=== PATIENT | female | born 1985 | race Caucasian/White ===

== ENCOUNTER 2016-09-23 20:13 | Inpatient (IN) | payer SELFPAY ==
[2016-09-23] MEDS ORDERED: Piperacillin/Tazobact 3.375 GM in Sodium Chloride 0.9% 100 ML IVPB STA (20:49)
[2016-09-23] MEDS ORDERED: Piperacillin/Tazobact 3.375 gm Inj IVPB ONE (21:05)
--- NOTE | 2016-09-23 21:27 | ED PDOC ---
Lower Extremity Pain/Injury Time Seen by Provider: 09/23/16 20:26 Chief Complaint (Nursing): Lower Extremity Problem/Injury Chief Complaint (Provider): right foot swelling History Per: Patient History/Exam Limitations: no limitations Onset/Duration Of Symptoms: Days (2 weeks), Persistent Current Symptoms Are (Timing): Still Present Severity: Moderate Additional History Per: Patient Additional Complaint(s): The pt is a 31yo female, presents to the ED for evaluation of right foot swelling for the past 2 weeks. pt reports she was seen at an Urgent Care center in [place] and was diagnosed with cellulitis, given 10 day course of levoquin. Pt reports no improvement. States swelling is localized to top of foot associated with erythema and mild pain. Pt states redness slightly improved with use of antibioitcs but no changes in swelling. She went in for reevaluation today and was told to go to a hospital for further evaluation. Pt denies any trauma or open lesions in her foot. Pt reports continued walking with foot brace/boot on. She denies any fever or chills. Pt additionally reports she had outpatient labs demonstrated possible dM. She denies using any alcohol, tobacco or drugs. At present, she offers no additional medical complaints. Past Medical History Reviewed: Historical Data, Nursing Documentation, Vital Signs Vital Signs: Last Vital Signs Temp 97.2 F L 09/23/16 20:22 Pulse 77 09/23/16 20:22 Resp 16 09/23/16 20:22 BP 120/75 09/23/16 20:22 Pulse Ox 99 09/23/16 20:22 - Medical History PMH: No Chronic Diseases - Surgical History Surgical History: No Surg Hx - Family History Family History: States: Diabetes - Home Medications Home Medications: Ambulatory Orders Medication Instructions Recorded No Known Home Med 09/24/16 - Allergies Allergies/Adverse Reactions: Allergies Allergy/AdvReac Type Severity Reaction Status Date / Time No Known Allergies Allergy Verified 09/23/16 20:22 Review of Systems ROS Statement: Except As Marked, All Systems Reviewed And Found Negative Constitutional: Negative for: Fever, Chills Musculoskeletal: Positive for: Foot Pain (right foot swelling) Physical Exam - Reviewed Nursing Documentation Reviewed: Yes Vital Signs Reviewed: Yes - Physical Exam Appears: Positive for: Well, Non-toxic, No Acute Distress Head Exam: Positive for: ATRAUMATIC, NORMAL INSPECTION, NORMOCEPHALIC Skin: Positive for: Normal Color, Warm, DRY Eye Exam: Positive for: EOMI, Normal appearance, PERRL Neck: Positive for: Normal Cardiovascular/Chest: Positive for: Regular Rate, Rhythm Respiratory: Positive for: Normal Breath Sounds. Negative for: Respiratory Distress Pulses-Post. Tibialis (L): 2+ Pulses-Post. Tibialis (R): 2+ Gastrointestinal/Abdominal: Positive for: Normal Exam Back: Positive for: Normal Inspection Extremity: Positive for: Normal ROM (normal ROM of digits), Tenderness ( tenderness to palpation at swollen site), Capillary Refill (< 2 seconds), Swelling (right foot with marked edema, erythema to dorsum of mid right foot. Light touch intact.). Negative for: Pedal Edema, Calf Tenderness, Deformity Neurologic/Psych: Positive for: Alert, Oriented - Laboratory Results Result Diagrams: 09/24/16 06:20 09/24/16 06:20 - ECG O2 Sat by Pulse Oximetry: 99 (RA) Pulse Ox Interpretation: Normal Medical Decision Making Medical Decision Making: Time: 2039 Impression: Right foot cellulitis, failed outpatient antibiotics treatment Plan: Pt will need hospitalization pending ER workup, for IV antibiotics. -- Blood work -- XR Right foot --Reassess Time: 2134 Podiatry consulted and evaluated patient in ER. Foot xray demonstrates marked soft tissue swelling dorsum of midfoot, ?abscess Labs unremarkable. Exam unchanged. IV Zosyn started for presumed resistant soft tissue infection Scribe Attestation: Documented by Brielle Crawley acting as a scribe for Kelly Beckham MD. Provider Attestation: All medical record entries made by the Scribe were at my direction and personally dictated by me. I have reviewed the chart and agree that the record accurately reflects my personal performance of the history, physical exam, medical decision making, and the department course for this patient. I have also personally directed, reviewed, and agree with the discharge instructions and disposition. Disposition - Clinical Impression Clinical Impression: Cellulitis Counseled Patient/Family Regarding: Studies Performed, Diagnosis - Disposition Disposition Time: 20:30 Condition: STABLE - Pt Status Changed To: Hospital Disposition Of: Observation - POA Present On Arrival: Poor Glycemic Control
[2016-09-23 22:21] LABS: BASO % 0.4 % (0.0-2.0); EOS # 0.1 K/uL (0.0-0.7); EOS % 1.6 % (0.0-4.0); HEMATOCRIT 40.2 % (34.0-47.0); LYMPH # 3.6 K/uL (1.0-4.3); LYMPH % 40.1 % (20.0-40.0); MEAN CELL VOLUME 81.3 fl (81.0-99.0); MEAN CORPUSCULAR HEMOGLOBIN 26.7 pg (27.0-31.0); MEAN CORPUSCULAR HGB CONC 32.9 g/dL (33.0-37.0); MEAN PLATELET VOLUME 7.3 fl (7.2-11.7); MONO # 0.8 K/uL (0.0-0.8); MONO % 8.6 % (0.0-10.0); NEUT # 4.5 K/uL (1.8-7.0); NEUT % 49.3 % (50.0-75.0); NRBC % 0.1 % (0.0-0.0); WHITE BLOOD COUNT 9.1 K/uL (4.8-10.8)
[2016-09-23 22:25] LABS: ALKALINE PHOSPHATASE 124 U/L (38-126); ALT/SGPT 32 U/L (9-52); AST/SGOT 21 U/L (14-36); BILIRUBIN,TOTAL 0.5 mg/dl (0.2-1.3); BLOOD UREA NITROGEN 11 mg/dl (7-17); CALCIUM 9.6 mg/dL (8.4-10.2); CARBON DIOXIDE 29 mmol/L (22-30); CHLORIDE 99 mmol/L (98-107); GFR AFRICAN-AMERICAN > 60; GLUCOSE,RANDOM 130 mg/dL (65-105); POTASSIUM 4.1 MMOL/L (3.6-5.0); SODIUM 136 mmol/l (132-148); TOTAL PROTEIN 8.3 G/DL (6.3-8.2)
[2016-09-23 22:34] LABS: PARTIAL THROMBOPLASTIN TIME 26.6 SECONDS (23.3-32.5)
[2016-09-23] MEDS ORDERED: Lidocaine 1% Inj (20ml) IJ ONE (22:47)
[2016-09-23] MEDS ORDERED: Lidocaine 1% Inj (20ml) ONE (22:52)
[2016-09-23] MEDS ORDERED: Vancomycin 1 g Inj ONE (23:34)
--- NOTE | 2016-09-23 23:37 | CP.PCM.CON ---
History of Present Illness - History of Present Illness History of Present Illness: 31 y/o female seen in the ED with right foot and ankle cellulitis. Patient states that roughly 10 days ago she woke up and she noticed that her right foot was very red and swolen. Patient states that her sister is a doctor who she called first who had her probe the area and patient states that it was a firm mass on the top of her foot. There was not openings taht she could see and she does not recall any trauma to the area. Patient states that she then went to an urgent care in the city where x-rays were taken and were negative but the doctoar put her on a 10 day dose of levaquin. Patient states that over the course of the treatment the redness and swelling did go down but that it did not resolve. Patient followed up with a doctor today who sent her to the ED to recieve IV abx. Patient states that the area is very tender and also states that bruising along the outside of the foot appeared after the initial redness because she was walking funny. Denies any f/c/n/v/sob throughout the course of infection. 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 Meds Allergies/Adverse Reactions: Allergies Allergy/AdvReac Type Severity Reaction Status Date / Time No Known Allergies Allergy Verified 09/23/16 20:22 - Medications Medications: Current Medications Piperacillin Sod/Tazobactam (Sod 3.375 gm/ Sodium Chloride) 100 mls @ 100 mls/ hr IVPB Q6H MILAN Vancomycin HCl 1,000 mg/ (Sodium Chloride) 250 mls @ 250 mls/hr IVPB ONCE ONE Stop: 09/24/16 00:28 Ketorolac Tromethamine (Toradol) 30 mg IVP Q6 PRN PRN Reason: Pain, moderate (4-7) Physical Exam - Constitutional Appears: Well, Non-toxic, No Acute Distress - Respiratory Exam Respiratory Exam: Clear to Auscultation Bilateral, NORMAL BREATHING PATTERN - Cardiovascular Exam Cardiovascular Exam: REGULAR RHYTHM - GI/Abdominal Exam GI & Abdominal Exam: Normal Bowel Sounds - Neurological Exam Neurological exam: Alert, Oriented x3 - Psychiatric Exam Psychiatric exam: Normal Affect, Normal Mood - Skin Skin Exam: Normal Color, Warm - Additional Findings Additional findings: Right foot focused; Vasc: DP non palpable due to edema, PT 1/4, Temp gradient increased to the dorsum of right foot, CAp fill time < 3 s x 10 Derm: There is gross diffuse edema noted across the dorsum of the right foot which is fluctuant, there is also surrounding erythema that extends from the dorsum of the right foot along the lateral aspect and medial aspect of the foot to the corresponding ankle area, it does not pass the ankle joint into the leg, there is pitting edema noted on the lateral aspect of the foot with eccymosis along lateral aspect of foot, there is no area of opening, no ulcerations noted , no draining lesions noted Neuro: Grossly intact Neuro: unablet o asses due to pain. Results - Vital Signs Recent Vital Signs: Last Vital Signs Temp 97.2 F L 09/23/16 20:22 Pulse 77 09/23/16 20:22 Resp 16 09/23/16 20:22 BP 120/75 09/23/16 20:22 Pulse Ox 99 09/23/16 21:35 - Labs Result Diagrams: 09/23/16 20:59 09/23/16 20:59 Assessment & Plan - Assessment and Plan (Free Text) Assessment: 31 y/o female with right foot cellulitis with possible abscess. Plan: Patient evaluated and chart reviewed. Discussed with Dr. Durán X-rays reviewed; there is a large area of either sever soft tissue edema or underlying purulence at the dorsum of the right foot, no gas is noted Decision was made to tap the area of fluctuance to r/o abcess Right foot numbed with 3cc 1% lidocaine w/o complication #18 Gauge needed used to probe the fluctuant area; no purulence was noted There was a large amount of sero-sanguine fluid that was able to be extruded from the site of the puncture, no purulence or cloudy fluid was noted so the wound wasnt opened further at this time. The wound was dressed with DSD at this time. Tomorrrow the right foot will need to be reassesed. If redness and swelling has re-appeared or worsened MRI may need to be done or the patient may need to go to the OR to have an I and D of the right foot done to open up the interspaces NPO status placed after midnight. Seen with Dr. Flores; Patient to be on Zosyn 3.375 q6h, stat does of Momoo 1g. To f/u tomorrow in the Am for assesment for the OR>
--- NOTE | 2016-09-24 00:18 | CP.PCM.HP ---
History of Present Illness - History of Present Illness History of Present Illness: 31 yo female with non significant past medical history presented to the ED with right foot and ankle swelling. Patient states that about 2 wks ago she woke up and she noticed that her right foot was very red and swollen, mostly on top of foot. Denies any previous trauma, heel wearing, pain the night before, history of similar episodes. Patient spoke with her sister, whom is a neurosurgeon in [facility], and recommended patient be seen by doctor. Patient was seen at [facility]gent [facility], started on Levaquin, which she completed Tuesday (a 10 day course). Patient went for follow up today, recommended that patient go to ED for possible need of IV antibiotics. Patient states area has improved though pain/swelling/redness is still present. Patient currently menstruating. Usually normal menses every month. Of note, patient was found to have elevated HgbA1c initially at urgent care with elevated WBC as well. Patient states she tends to eat healthy, refraining from carbs and high fats. Though due to increased work schedule, decreased exercise with notable weight gain. Denies any fever, chills , nausea, vomiting, chest pain, abdominal pain, changes in urinary/bowel habits , or dyspnea throughout the course of infection. PMD: None PMH: Denies PSH: Denies Meds: Denies Allx: Denies Family Hx: Father with DM, due to intracranial hemorrhage. Mother alive and healthy. Social: 1 drink per month. Denies drug/tobacco use. 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 ED Course: Vitals stable Labs unremarkable. Podiatry consulted, aspirated area of concern, notable fluid drainage with serosangious fluid. Wound culture collected Zosyn and Vanco x 1 Present on Admission - Present on Admission Any Indicators Present on Admission: No Review of Systems - Review of Systems All systems: reviewed and no additional remarkable complaints except (as per HPI , all other systems negative) Meds Allergies/Adverse Reactions: Allergies Allergy/AdvReac Type Severity Reaction Status Date / Time No Known Allergies Allergy Verified 09/23/16 20:22 Physical Exam - Constitutional Appears: Well, Non-toxic, No Acute Distress Additional comments: Obese. - Head Exam Head Exam: ATRAUMATIC, NORMAL INSPECTION, NORMOCEPHALIC - Eye Exam Eye Exam: EOMI, Normal appearance - ENT Exam ENT Exam: Normal Exam - Neck Exam Neck exam: Positive for: Normal Inspection - Respiratory Exam Respiratory Exam: Clear to Auscultation Bilateral, NORMAL BREATHING PATTERN. absent: Rhonchi, Wheezes - Cardiovascular Exam Cardiovascular Exam: REGULAR RHYTHM, RRR, +S1, +S2 - GI/Abdominal Exam GI & Abdominal Exam: Normal Bowel Sounds, Soft. absent: Tenderness - Extremities Exam Additional comments: right dorsum of foot/ankle with erythema/edema with notable fluctuance with mild ecchymosis of lateral aspect of foot. No openings/ulcerations/lesions noted. - Back Exam Back exam: NORMAL INSPECTION - Neurological Exam Neurological exam: Alert, Oriented x3 - Psychiatric Exam Psychiatric exam: Normal Affect, Normal Mood - Skin Skin Exam: Dry, Intact, Normal Color, Warm Results - Vital Signs Recent Vital Signs: Last Vital Signs Temp 97.2 F L 09/23/16 20:22 Pulse 77 09/23/16 20:22 Resp 16 09/23/16 20:22 BP 120/75 09/23/16 20:22 Pulse Ox 99 09/23/16 21:35 - Labs Result Diagrams: 09/23/16 20:59 09/23/16 20:59 Assessment & Plan (1) Cellulitis Status: Acute (2) Obesity Status: Acute - Assessment and Plan (Free Text) Assessment: 31 yo obese female with no significant past medical history with right foot cellulitis with possible abscess. Plan: (1) Cellulitis with possible abscess of Right Foot - Afebrile, no leukocytosis at this time - Foot xray reviewed, follow up official read - Seen with medicaid billing clerk, area was aspirated, serosangious fluid noted - Admit for IV abx and possible further management (I&D?) - Vanco and Zosyn x 1 in ED - Would culture collected in ED, follow up - Continue Zosyn q6H - follow up CBC in AM - Monitor vitals - Toradol PRN for pain (2) Obesity - Patient with elevation of HgbA1c in urgent care along with family history - Will evaluate for metabolic syndrom - Follow up labs in am (lipid panel, tsh, hgba1c) (3) DVT prophylaxis - SCDs at this time - Date & Time Date: 09/24/16 Time: 00:32 Decision To Admit - Pt Status Changed To: Hospital Disposition Of: Observation - . Bed Request Type: Med/Surg Admitting Physician: Cleo Oliveira
[2016-09-24] MEDS: Piperacillin/Tazobact 3.375 GM in Sodium Chloride 0.9% 100 ML IVPB SCH ×3 (06:02→17:03)
[2016-09-24 07:10] LABS: BASO % 0.5 % (0.0-2.0); EOS # 0.2 K/uL (0.0-0.7); HEMATOCRIT 37.8 % (34.0-47.0); LYMPH # 3.6 K/uL (1.0-4.3); LYMPH % 41.4 % (20.0-40.0); MEAN CELL VOLUME 81.1 fl (81.0-99.0); MEAN CORPUSCULAR HEMOGLOBIN 27.4 pg (27.0-31.0); MEAN CORPUSCULAR HGB CONC 33.8 g/dL (33.0-37.0); MEAN PLATELET VOLUME 7.2 fl (7.2-11.7); MONO # 0.8 K/uL (0.0-0.8); MONO % 8.8 % (0.0-10.0); NEUT # 4.1 K/uL (1.8-7.0); NEUT % 47.3 % (50.0-75.0); NRBC % 0.1 % (0.0-0.0); RED CELL DISTRIBUTION WIDTH 13.9 % (11.5-14.5); WHITE BLOOD COUNT 8.6 K/uL (4.8-10.8)
[2016-09-24 07:28] LABS: BLOOD UREA NITROGEN 12 mg/dl (7-17); CALCIUM 9.1 mg/dL (8.4-10.2); CARBON DIOXIDE 27 mmol/L (22-30); CHLORIDE 103 mmol/L (98-107); CHOLESTEROL 181 mg/dL (0-199); GFR AFRICAN-AMERICAN > 60; GLUCOSE,RANDOM 177 mg/dL (65-105); POTASSIUM 3.9 MMOL/L (3.6-5.0); SODIUM 135 mmol/l (132-148)
[2016-09-24 07:50] LABS: THYROID STIMULATING HORMONE 5.11 mIU/ML (0.46-4.68)
[2016-09-24 08:08] VITALS: RESP 20
--- NOTE | 2016-09-24 08:50 | RAD ---
PROCEDURE: Right Foot Radiographs. HISTORY: RIGHT foot swelling cellulitis COMPARISON: None. FINDINGS: BONES: Normal. No fracture. JOINTS: Normal. SOFT TISSUES: Severe dorsal soft tissue swelling consistent with cellulitis in the appropriate clinical setting. OTHER FINDINGS: None. IMPRESSION: Severe dorsal soft tissue swelling consistent with cellulitis in the appropriate clinical setting.
[2016-09-24] MEDS ORDERED: Enoxaparin 40 mg Syringe SC SCH (09:00)
--- NOTE | 2016-09-24 09:20 | CP.PCM.PN ---
Objective - Vital Signs/Intake and Output Vital Signs (last 24 hours): Temp Pulse Resp BP Pulse Ox 97.6 F 67 20 118/79 99 09/24/16 08:08 09/24/16 08:08 09/24/16 08:08 09/24/16 08:08 09/24/16 08:08 - Medications Medications: Current Medications Piperacillin Sod/Tazobactam (Sod 3.375 gm/ Sodium Chloride) 100 mls @ 100 mls/ hr IVPB Q6H MILAN Last Admin: 09/24/16 06:02 Dose: 100 mls/hr Ketorolac Tromethamine (Toradol) 30 mg IVP Q6 PRN PRN Reason: Pain, moderate (4-7) Last Admin: 09/24/16 01:17 Dose: 30 mg - Labs Labs: 09/24/16 06:20 09/24/16 06:20 PT 11.4 SECONDS (9.6-11.2) H 09/23/16 20:59 INR 1.10 (0.92-1.08) H 09/23/16 20:59 APTT 26.6 SECONDS (23.3-32.5) 09/23/16 20:59
--- NOTE | 2016-09-24 11:21 | MRI ---
PROCEDURE: MRI Right Foot HISTORY: Pain. COMPARISON: None available. TECHNIQUE: Multiecho multiplanar sequences were performed through the right foot without the use of intravenous contrast. FINDINGS: BONES: No fracture. Normal marrow signal. MUSCLES: Normal. SOFT TISSUES: There is a severe dorsal soft tissue swelling. There is no fluid collection. LISFRANC LIGAMENT: Normal. PLANTAR PLATE: Normal. EXTENSOR TENDONS: Normal. FLEXOR TENDONS: Normal. OTHER FINDINGS: None. IMPRESSION: Severe dorsal soft tissue swelling compatible with cellulitis. No drainable fluid collection/abscess.
--- NOTE | 2016-09-24 12:36 | CP.PCM.CON ---
History of Present Illness - History of Present Illness History of Present Illness: Infectious Disease Consultation Note- HPI- Patient is a pleasant 31 year old female with no PMH who was admitted with right foot/ankle swelling and redness. pt. states about 2 weeks ago she woke up one morning noticing that the top pf her right foot was red and swollen and she went to urgent care center and they did plain xray and cbc and xray did not show any fracture and her cbc was ok ( has copies of it in the room) but she states she was given 10 day course of levaquin bc it was felt that she has cellulitis pt. states she then went back to see her doctor for follow up and she was told to go to ED as she might need IV abx since her swellinga nd redness was still not resolved. Pt. denies any injury or trauma to the foot. she denies any h/o joint swelling or any h/o cellulitis in the past. She denies any fever or chills. denies any animal exposure. She states she feels better since admission. She also states podiatry team had attempted needle drainage of the foot but there was no pus only some clear liquid ( as per pt). PMH: Denies PSH: Denies Meds: Denies Allx: Denies, NKDA Social: 1 drink per month. Denies drug/tobacco use. 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 Review of Systems - Review of Systems Review of Systems: ROS- denies any fever or chills, denies any CHERY, denies any cough, denies any sob, denies any chest pain, denies any n/v, denies any abd. pain, denies any dysurea , denies any diarrhea Right foot swelling and redness, mild pain, no swelling of the toes denies any injury or trauma to the area Past Patient History - Past Medical History & Family History Past Medical History?: No - Past Social History Smoking Status: Never Smoked Alcohol: Occasional Drugs: Denies - CARDIAC Hx Cardiac Disorders: No - PULMONARY Hx Respiratory Disorders: No - NEUROLOGICAL Hx Neurological Disorder: No - HEENT Hx HEENT Problems: No - RENAL Hx Chronic Kidney Disease: No - ENDOCRINE/METABOLIC Hx Endocrine Disorders: No - HEMATOLOGICAL/ONCOLOGICAL Hx Blood Disorders: No - INTEGUMENTARY Hx Dermatological Problems: No - GASTROINTESTINAL Hx Bowel Surgery: No - GENITOURINARY/GYNECOLOGICAL Hx Genitourinary Disorders: No - PSYCHIATRIC Hx Psychophysiologic Disorder: No - SURGICAL HISTORY Hx Surgeries: No - ANESTHESIA Hx Anesthesia: No Meds Allergies/Adverse Reactions: Allergies Allergy/AdvReac Type Severity Reaction Status Date / Time No Known Allergies Allergy Verified 09/23/16 20:22 - Medications Medications: Current Medications Piperacillin Sod/Tazobactam (Sod 3.375 gm/ Sodium Chloride) 100 mls @ 100 mls/ hr IVPB Q6H MILAN Last Admin: 09/24/16 11:46 Dose: 100 mls/hr Ketorolac Tromethamine (Toradol) 30 mg IVP Q6 PRN PRN Reason: Pain, moderate (4-7) Last Admin: 09/24/16 01:17 Dose: 30 mg Physical Exam - Constitutional Appears: Non-toxic, No Acute Distress - Head Exam Head Exam: ATRAUMATIC - Eye Exam Eye Exam: EOMI, PERRL - ENT Exam ENT Exam: Normal Oropharynx - Neck Exam Neck exam: Positive for: Full Rom - Respiratory Exam Respiratory Exam: Clear to Auscultation Bilateral, NORMAL BREATHING PATTERN - Cardiovascular Exam Cardiovascular Exam: RRR, +S1, +S2 - GI/Abdominal Exam GI & Abdominal Exam: Normal Bowel Sounds, Soft Additional comments: NT, ND - Extremities Exam Additional comments: Right dorsal foot with edema and erythema and warm to touch extending to the lateral maleolar region no edema in the toes minimal tenderness in dorsal foot region only no open wounds - Neurological Exam Neurological exam: Alert, Oriented x3 Results - Vital Signs Recent Vital Signs: Last Vital Signs Temp 97.6 F 09/24/16 08:08 Pulse 67 09/24/16 08:08 Resp 20 09/24/16 08:08 BP 118/79 09/24/16 08:08 Pulse Ox 99 09/24/16 08:08 - Labs Result Diagrams: 09/24/16 06:20 09/24/16 06:20 Labs: Laboratory Results - last 24 hr 09/24/16 09/24/16 09/24/16 06:20 06:24 10:02 WBC 8.6 RBC 4.67 Hgb 12.8 Hct 37.8 MCV 81.1 MCH 27.4 MCHC 33.8 RDW 13.9 Plt Count 318 MPV 7.2 Neut % (Auto) 47.3 L Lymph % (Auto) 41.4 H [place] % (Auto) 8.8 Eos % (Auto) 2.0 Baso % (Auto) 0.5 Neut # 4.1 Lymph # 3.6 [place] # 0.8 Eos # 0.2 Baso # 0.0 Sodium 135 Potassium 3.9 Chloride 103 Carbon Dioxide 27 Anion Gap 10 BUN 12 Creatinine 0.7 Est GFR ( Amer) > 60 Est GFR (Non-Af Amer) > 60 POC Glucose (mg/dL) 188 H Random Glucose 177 H Hemoglobin A1c 7.8 H Uric Acid 4.6 Calcium 9.1 Triglycerides 121 Cholesterol 181 LDL Cholesterol Direct 124 HDL Cholesterol 28 L TSH 3rd Generation 5.11 H Laboratory Results - last 72 hr 09/23/16 09/23/16 09/23/16 20:59 21:24 21:53 WBC 9.1 RBC 4.95 Hgb 13.2 Hct 40.2 MCV 81.3 MCH 26.7 L MCHC 32.9 L RDW 14.0 Plt Count 366 MPV 7.3 Neut % (Auto) 49.3 L Lymph % (Auto) 40.1 H [place] % (Auto) 8.6 Eos % (Auto) 1.6 Baso % (Auto) 0.4 Neut # 4.5 Lymph # 3.6 [place] # 0.8 Eos # 0.1 Baso # 0.0 ESR 14 PT 11.4 H INR 1.10 H APTT 26.6 Sodium 136 Potassium 4.1 Chloride 99 Carbon Dioxide 29 Anion Gap 13 BUN 11 Creatinine 0.7 Est GFR ( Amer) > 60 Est GFR (Non-Af Amer) > 60 POC Glucose (mg/dL) 129 H Random Glucose 130 H Hemoglobin A1c Lactic Acid 1.0 Uric Acid Calcium 9.6 Total Bilirubin 0.5 AST 21 ALT 32 Alkaline Phosphatase 124 C-React Prot High Sens > 15.00 H Total Protein 8.3 H Albumin 4.2 Globulin 4.1 H Albumin/Globulin Ratio 1.0 Triglycerides Cholesterol LDL Cholesterol Direct HDL Cholesterol TSH 3rd Generation 09/24/16 09/24/16 09/24/16 06:20 06:24 10:02 WBC 8.6 RBC 4.67 Hgb 12.8 Hct 37.8 MCV 81.1 MCH 27.4 MCHC 33.8 RDW 13.9 Plt Count 318 MPV 7.2 Neut % (Auto) 47.3 L Lymph % (Auto) 41.4 H [place] % (Auto) 8.8 Eos % (Auto) 2.0 Baso % (Auto) 0.5 Neut # 4.1 Lymph # 3.6 [place] # 0.8 Eos # 0.2 Baso # 0.0 ESR PT INR APTT Sodium 135 Potassium 3.9 Chloride 103 Carbon Dioxide 27 Anion Gap 10 BUN 12 Creatinine 0.7 Est GFR ( Amer) > 60 Est GFR (Non-Af Amer) > 60 POC Glucose (mg/dL) 188 H Random Glucose 177 H Hemoglobin A1c 7.8 H Lactic Acid Uric Acid 4.6 Calcium 9.1 Total Bilirubin AST ALT Alkaline Phosphatase C-React Prot High Sens Total Protein Albumin Globulin Albumin/Globulin Ratio Triglycerides 121 Cholesterol 181 LDL Cholesterol Direct 124 HDL Cholesterol 28 L TSH 3rd Generation 5.11 H Accession No. : [id number] Patient Name / ID : KRISTEN ZHENG / [id number] Exam Date : 09/23/2016 21:33:24 ( Approved ) Study Comment : Sex / Age : F / 31Y Creator : Kolby Jaffe MD Dictator : Kolby Jaffe MD Typist : Court Operations Clerk : Kolby Jaffe MD Approver2 : Report Date : 09/24/2016 08:48:43 My Comment : PROCEDURE: Right Foot Radiographs. HISTORY: RIGHT foot swelling cellulitis COMPARISON: None. FINDINGS: BONES: Normal. No fracture. JOINTS: Normal. SOFT TISSUES: Severe dorsal soft tissue swelling consistent with cellulitis in the appropriate clinical setting. OTHER FINDINGS: None. IMPRESSION: Severe dorsal soft tissue swelling consistent with cellulitis in the appropriate clinical setting. Accession No. : [id number] Patient Name / ID : KRISTEN ZHENG / [id number] Exam Date : 09/24/2016 10:02:34 ( Approved ) Study Comment : Sex / Age : F / 31Y Creator : Kolby Jaffe MD Dictator : Kolby Jaffe MD Typist : Court Operations Clerk : Kolby Jaffe MD Approver2 : Report Date : 09/24/2016 11:19:52 My Comment : PROCEDURE: MRI Right Foot HISTORY: Pain. COMPARISON: None available. TECHNIQUE: Multiecho multiplanar sequences were performed through the right foot without the use of intravenous contrast. FINDINGS: BONES: No fracture. Normal marrow signal. MUSCLES: Normal. SOFT TISSUES: There is a severe dorsal soft tissue swelling. There is no fluid collection. LISFRANC LIGAMENT: Normal. PLANTAR PLATE: Normal. EXTENSOR TENDONS: Normal. FLEXOR TENDONS: Normal. OTHER FINDINGS: None. IMPRESSION: Severe dorsal soft tissue swelling compatible with cellulitis. No drainable fluid collection/abscess. Assessment & Plan (1) Cellulitis Status: Acute (2) Obesity Status: Acute - Assessment and Plan (Free Text) Assessment: A/P- 31 year old obese female with right foot/ankle cellulits. based on MRI report no drainable fluid collection, normal marrow. low ESR and no mention of any OM on MRI. afebrile normal wbc count elevated Hgb- A1c and diabetes to be ruled out. normal uric acid level. plan- advise to d/c zosyn. advise to start pt. on vancomycin 15 mg/kg to cover for MRSA. keep trough <15. advise to keep the foot elevated and apply warm compress to the region. length of abx pending clinical response. Thank you for allowiing me to take part in the care of this patient. will f/u.
[2016-09-24] MEDS ORDERED: SODIUM CHLORIDE 0.9% IVPB SCH (14:30)
[2016-09-24] MEDS ORDERED: VANCOMYCIN IVPB SCH (14:30)
--- NOTE | 2016-09-24 16:16 | CP.PCM.PCO ---
Assessment/Plan - Assessment and Plan (Free Text) Assessment: I am unable to add an addednum to resident note [facility] Hx confirmed. Pt states she took abx as prescribed and her foot in 75% better but she did not rest or elevate and continued to commute and work in [facility] using "surgical boot" ID consult placed. I saw and evaluated the patient. I discussed the case with the resident and agree with the findings and plan as documented in the resident's note.
[2016-09-24] MEDS: Enoxaparin 40 mg Syringe SC SCH ×2 (18:00→19:01)
[2016-09-25] MEDS: VANCOMYCIN IVPB SCH ×2 (05:48→17:10)
[2016-09-25] MEDS: SODIUM CHLORIDE 0.9% IVPB SCH ×2 (05:48→17:10)
[2016-09-25] MEDS: Enoxaparin 40 mg Syringe SC SCH (08:51)
--- NOTE | 2016-09-25 09:27 | CP.PCM.PN ---
Subjective - Date & Time of Evaluation Date of Evaluation: 09/25/16 Time of Evaluation: 11:40 - Subjective Subjective: 31 y/o female evaluated at bedside for right foot cellulitis. Pt notes a great improvement to overall redness and swelling but notes she still has tenderness on touch to the area. She denies and acute overnight events and denies recent f/ c/n/v/sob throughout the course of infection. Objective - Vital Signs/Intake and Output Vital Signs (last 24 hours): Temp Pulse Resp BP Pulse Ox 97.8 F 69 20 101/64 97 09/25/16 08:46 09/25/16 08:46 09/25/16 08:46 09/25/16 08:46 09/25/16 08:46 - Medications Medications: Current Medications Enoxaparin Sodium (Lovenox) 40 mg SC DAILY [facility] PRN Reason: Protocol Last Admin: 09/25/16 08:51 Dose: 40 mg Vancomycin HCl 1,360 mg/ (Sodium Chloride) 500 mls @ 250 mls/hr IVPB Q12@0600, 1800 [facility] Last Admin: 09/25/16 05:48 Dose: 250 mls/hr Ketorolac Tromethamine (Toradol) 30 mg IVP Q6 PRN PRN Reason: Pain, moderate (4-7) Last Admin: 09/24/16 01:17 Dose: 30 mg Metformin HCl (Glucophage) 500 mg PO BIDWM [facility] - Labs Labs: PT 11.4 SECONDS (9.6-11.2) H 09/23/16 20:59 INR 1.10 (0.92-1.08) H 09/23/16 20:59 APTT 26.6 SECONDS (23.3-32.5) 09/23/16 20:59 - Constitutional Appears: Well, Non-toxic, No Acute Distress - Extremities Exam Additional comments: Right foot focused. Vasc: DP non palpable due to edema, PT 1/4, Temp gradient increased to the dorsum of right foot, cap fill time < 3 s x 10 Derm: There is minor edema localized to dorsolateral midfoot. Regressed edema has shown a return in relaxed skin tension ligns. Decreased erythema minor inpection compared to contra-lateral limb. No fluctuance nor eccymosis noted at this time. There are no area of opening, no ulcerations noted, no draining lesions noted, or macerations noted. Neuro: Sensation Grossly intact Musck: Tenderness to light touch over dorsal lateral aspect of midfoot. Pedal muscle strenght is graded 5/5 in all 4 major pedal muscle groups. - Neurological Exam Neurological Exam: Alert, Awake, Oriented x3 - Psychiatric Exam Psychiatric exam: Normal Affect, Normal Mood Assessment and Plan - Assessment and Plan (Free Text) Assessment: 31 y/o female with right foot cellulitis, resolving. Plan: Patient evaluated and chart reviewed. Discussed with Dr. Durán -Cellulitis resolving, responding to IV antibiotics. Pt to continue IV abx per ID. Discussed with Dr. Tyler for potential outpatient treatment recommendations. - Pt is stable form podiatry standpoint for discharge. To followup in podiatry clinic within 1 week, to present to any ER should symptoms reappear. .
--- NOTE | 2016-09-25 13:47 | CP.PCM.PN ---
Subjective - Date & Time of Evaluation Date of Evaluation: 09/25/16 Time of Evaluation: 13:47 - Subjective Subjective: ID Note- Pt. seen and examined today. Pt. denies any fever or chills. She states the swelling is much less today on her foot but still has mild tenderness to touch in the region. Objective - Vital Signs/Intake and Output Vital Signs (last 24 hours): Temp Pulse Resp BP Pulse Ox 97.8 F 69 20 101/64 97 09/25/16 08:46 09/25/16 08:46 09/25/16 08:46 09/25/16 08:46 09/25/16 08:46 - Medications Medications: Current Medications Enoxaparin Sodium (Lovenox) 40 mg SC DAILY [facility] PRN Reason: Protocol Last Admin: 09/25/16 08:51 Dose: 40 mg Vancomycin HCl 1,360 mg/ (Sodium Chloride) 500 mls @ 250 mls/hr IVPB Q12@0600, 1800 [facility] Last Admin: 09/25/16 05:48 Dose: 250 mls/hr Ketorolac Tromethamine (Toradol) 30 mg IVP Q6 PRN PRN Reason: Pain, moderate (4-7) Last Admin: 09/24/16 01:17 Dose: 30 mg Metformin HCl (Glucophage) 500 mg PO BIDWM [facility] Last Admin: 09/25/16 10:53 Dose: 500 mg - Labs Labs: - Additional Findings Additional findings: - Constitutional Appears: Non-toxic, No Acute Distress - Head Exam Head Exam: ATRAUMATIC - Eye Exam Eye Exam: EOMI, PERRL - ENT Exam ENT Exam: Normal Oropharynx - Neck Exam Neck exam: Positive for: Full Rom - Respiratory Exam Respiratory Exam: Clear to Auscultation Bilateral, NORMAL BREATHING PATTERN - Cardiovascular Exam Cardiovascular Exam: RRR, +S1, +S2 - GI/Abdominal Exam GI & Abdominal Exam: Normal Bowel Sounds, Soft Additional comments: NT, ND - Extremities Exam Additional comments: much decreased edema in the right dorsal foot and the ankle lateral maleolar region swelling is resolved, minimal erythema only remaining in distal dorsal foot region. - Neurological Exam Neurological exam: Alert, Oriented x 3 Laboratory Results - last 72 hr 09/23/16 09/23/16 09/23/16 20:59 21:24 21:53 WBC 9.1 RBC 4.95 Hgb 13.2 Hct 40.2 MCV 81.3 MCH 26.7 L MCHC 32.9 L RDW 14.0 Plt Count 366 MPV 7.3 Neut % (Auto) 49.3 L Lymph % (Auto) 40.1 H [place] % (Auto) 8.6 Eos % (Auto) 1.6 Baso % (Auto) 0.4 Neut # 4.5 Lymph # 3.6 [place] # 0.8 Eos # 0.1 Baso # 0.0 ESR 14 PT 11.4 H INR 1.10 H APTT 26.6 Sodium 136 Potassium 4.1 Chloride 99 Carbon Dioxide 29 Anion Gap 13 BUN 11 Creatinine 0.7 Est GFR ( Amer) > 60 Est GFR (Non-Af Amer) > 60 POC Glucose (mg/dL) 129 H Random Glucose 130 H Hemoglobin A1c Lactic Acid 1.0 Uric Acid Calcium 9.6 Total Bilirubin 0.5 AST 21 ALT 32 Alkaline Phosphatase 124 C-React Prot High Sens > 15.00 H Total Protein 8.3 H Albumin 4.2 Globulin 4.1 H Albumin/Globulin Ratio 1.0 Triglycerides Cholesterol LDL Cholesterol Direct HDL Cholesterol TSH 3rd Generation Urine Opiates Screen Urine Methadone Screen Ur Barbiturates Screen Ur Phencyclidine Scrn Ur Amphetamines Screen U Benzodiazepines Scrn U Oth Cocaine Metabols U Cannabinoids Screen HIV-1 Ab Rapid Screen 09/24/16 09/24/16 09/24/16 06:20 06:24 10:02 WBC 8.6 RBC 4.67 Hgb 12.8 Hct 37.8 MCV 81.1 MCH 27.4 MCHC 33.8 RDW 13.9 Plt Count 318 MPV 7.2 Neut % (Auto) 47.3 L Lymph % (Auto) 41.4 H [place] % (Auto) 8.8 Eos % (Auto) 2.0 Baso % (Auto) 0.5 Neut # 4.1 Lymph # 3.6 [place] # 0.8 Eos # 0.2 Baso # 0.0 ESR PT INR APTT Sodium 135 Potassium 3.9 Chloride 103 Carbon Dioxide 27 Anion Gap 10 BUN 12 Creatinine 0.7 Est GFR ( Amer) > 60 Est GFR (Non-Af Amer) > 60 POC Glucose (mg/dL) 188 H Random Glucose 177 H Hemoglobin A1c 7.8 H Lactic Acid Uric Acid 4.6 Calcium 9.1 Total Bilirubin AST ALT Alkaline Phosphatase C-React Prot High Sens Total Protein Albumin Globulin Albumin/Globulin Ratio Triglycerides 121 Cholesterol 181 LDL Cholesterol Direct 124 HDL Cholesterol 28 L TSH 3rd Generation 5.11 H Urine Opiates Screen Urine Methadone Screen Ur Barbiturates Screen Ur Phencyclidine Scrn Ur Amphetamines Screen U Benzodiazepines Scrn U Oth Cocaine Metabols U Cannabinoids Screen HIV-1 Ab Rapid Screen 09/24/16 09/24/16 09/25/16 16:20 21:39 06:00 WBC RBC Hgb Hct MCV MCH MCHC RDW Plt Count MPV Neut % (Auto) Lymph % (Auto) [place] % (Auto) Eos % (Auto) Baso % (Auto) Neut # Lymph # [place] # Eos # Baso # ESR PT INR APTT Sodium Potassium Chloride Carbon Dioxide Anion Gap BUN Creatinine Est GFR ( Amer) Est GFR (Non-Af Amer) POC Glucose (mg/dL) 141 H Random Glucose Hemoglobin A1c Lactic Acid Uric Acid 4.8 Calcium Total Bilirubin AST ALT Alkaline Phosphatase C-React Prot High Sens Total Protein Albumin Globulin Albumin/Globulin Ratio Triglycerides Cholesterol LDL Cholesterol Direct HDL Cholesterol TSH 3rd Generation Urine Opiates Screen Negative Urine Methadone Screen Negative Ur Barbiturates Screen Negative Ur Phencyclidine Scrn Negative Ur Amphetamines Screen Negative U Benzodiazepines Scrn Negative U Oth Cocaine Metabols Negative U Cannabinoids Screen Negative HIV-1 Ab Rapid Screen 09/25/16 09/25/16 09/25/16 06:04 10:00 11:13 WBC RBC Hgb Hct MCV MCH MCHC RDW Plt Count MPV Neut % (Auto) Lymph % (Auto) [place] % (Auto) Eos % (Auto) Baso % (Auto) Neut # Lymph # [place] # Eos # Baso # ESR PT INR APTT Sodium Potassium Chloride Carbon Dioxide Anion Gap BUN Creatinine Est GFR ( Amer) Est GFR (Non-Af Amer) POC Glucose (mg/dL) 119 H 175 H Random Glucose Hemoglobin A1c Lactic Acid Uric Acid Calcium Total Bilirubin AST ALT Alkaline Phosphatase C-React Prot High Sens Total Protein Albumin Globulin Albumin/Globulin Ratio Triglycerides Cholesterol LDL Cholesterol Direct HDL Cholesterol TSH 3rd Generation Urine Opiates Screen Urine Methadone Screen Ur Barbiturates Screen Ur Phencyclidine Scrn Ur Amphetamines Screen U Benzodiazepines Scrn U Oth Cocaine Metabols U Cannabinoids Screen HIV-1 Ab Rapid Screen Non reactive Microbiology 09/23/16 23:30 Foot - Right Gram Stain - Final 09/23/16 23:30 Foot - Right Wound Culture - Preliminary NO GROWTH AFTER 24 HOURS 09/23/16 21:38 Blood Blood Culture - Preliminary NO GROWTH AFTER 24 HOURS 09/23/16 21:38 Blood Blood Culture - Preliminary NO GROWTH AFTER 24 HOURS Assessment and Plan (1) Cellulitis Status: Acute (2) Obesity Status: Acute - Assessment and Plan (Free Text) Assessment: A/P- 31 year old obese female with right foot/ankle cellulits. clinically much improved. low ESR and no mention of any OM on MRI. remains afebrile normal wbc count blood cx- neg x 2 wound cx- neg plan- advise to continue with IV vancomycin day #2. keep trough <15. advise to keep the foot elevated and apply warm compress to the region. pt. can be d/c home tomm after am vanco given. pt. can be d/c home on oral bactrim DS BID for 10 days. pt. advised to f/u with her PMD in few days after d/c home. Pt. verbalizes full understanding of all above and agrees with above plan of care. d/w family practice team and podiatry as well.
--- NOTE | 2016-09-25 16:04 | CP.PCM.PN ---
Subjective - Date & Time of Evaluation Date of Evaluation: 09/25/16 Time of Evaluation: 08:30 - Subjective Subjective: No over-night events. Afebrile. Pain scale improved. No signs or symptoms of systemic infectious process. No ADRs reported to Abx. Denies polyuria, polydipsia. No new focal deficits. Tolerating PO intake. Objective - Vital Signs/Intake and Output Vital Signs (last 24 hours): Temp Pulse Resp BP Pulse Ox 97.8 F 69 20 101/64 97 09/25/16 08:46 09/25/16 08:46 09/25/16 08:46 09/25/16 08:46 09/25/16 08:46 - Medications Medications: Current Medications Enoxaparin Sodium (Lovenox) 40 mg SC DAILY [facility] PRN Reason: Protocol Last Admin: 09/25/16 08:51 Dose: 40 mg Vancomycin HCl 1,360 mg/ (Sodium Chloride) 500 mls @ 250 mls/hr IVPB Q12@0600, 1800 [facility] Last Admin: 09/25/16 05:48 Dose: 250 mls/hr Ketorolac Tromethamine (Toradol) 30 mg IVP Q6 PRN PRN Reason: Pain, moderate (4-7) Last Admin: 09/24/16 01:17 Dose: 30 mg Metformin HCl (Glucophage) 500 mg PO BIDWM [facility] Last Admin: 09/25/16 10:53 Dose: 500 mg - Labs Labs: PT 11.4 SECONDS (9.6-11.2) H 09/23/16 20:59 INR 1.10 (0.92-1.08) H 09/23/16 20:59 APTT 26.6 SECONDS (23.3-32.5) 09/23/16 20:59 - Head Exam Head Exam: ATRAUMATIC, NORMOCEPHALIC - Eye Exam Eye Exam: EOMI, Normal appearance Pupil Exam: PERRL - ENT Exam ENT Exam: Mucous Membranes Moist - Cardiovascular Exam Cardiovascular Exam: REGULAR RHYTHM, +S1, +S2 - GI/Abdominal Exam GI & Abdominal Exam: Soft, Normal Bowel Sounds. absent: Tenderness - Extremities Exam Additional comments: Right lower foot: swelling (improved), tender to touch and warm, no oozing or drainage point. Localized to dorsum of foot without extension to toes. Assessment and Plan - Assessment and Plan (Free Text) Plan: 1. Right foot cellulitis Afebrile. No Leukocytosis. MRI negative for Osteo. ESR WNL; CRP >15 Cultures negative ID on Board Vanco IV continued Pain management 2. Diabetes Mellitus Type II, newly diagnosed HgbA1c: 7.8% Metformin 500mg PO BID Monitor for ADRs Counseled on diagnosis Supportive therapy provided Will need outpatient follow up for optimization and comprehensive diabetic education 3. VTE Lovenox 40mg SC Daily
[2016-09-26] MEDS: SODIUM CHLORIDE 0.9% IVPB SCH (05:38)
[2016-09-26] MEDS: VANCOMYCIN IVPB SCH (05:38)
[2016-09-26 08:20] VITALS: BP 100/62; PULSE 81; TEMP 98.6; O2SAT 97
--- NOTE | 2016-09-26 08:57 | CP.PCM.DIS ---
Provider - Provider Date of Admission: 09/24/16 16:14 Attending physician: Cleo Oliveira MD Time Spent in preparation of Discharge (in minutes): 30 Diagnosis - Discharge Diagnosis (1) Cellulitis Status: Acute (2) New onset type 2 diabetes mellitus Status: Acute Hospital Course - Lab Results Lab Results: Most Recent Lab Values WBC 8.6 K/uL (4.8-10.8) 09/24/16 06:20 RBC 4.67 Mil/uL (3.80-5.20) 09/24/16 06:20 Hgb 12.8 g/dL (12.0-16.0) 09/24/16 06:20 Hct 37.8 % (34.0-47.0) 09/24/16 06:20 MCV 81.1 fl (81.0-99.0) 09/24/16 06:20 MCH 27.4 pg (27.0-31.0) 09/24/16 06:20 MCHC 33.8 g/dL (33.0-37.0) 09/24/16 06:20 RDW 13.9 % (11.5-14.5) 09/24/16 06:20 Plt Count 318 K/uL (130-400) 09/24/16 06:20 MPV 7.2 fl (7.2-11.7) 09/24/16 06:20 Neut % (Auto) 47.3 % (50.0-75.0) L 09/24/16 06:20 Lymph % (Auto) 41.4 % (20.0-40.0) H 09/24/16 06:20 [place] % (Auto) 8.8 % (0.0-10.0) 09/24/16 06:20 Eos % (Auto) 2.0 % (0.0-4.0) 09/24/16 06:20 Baso % (Auto) 0.5 % (0.0-2.0) 09/24/16 06:20 Neut # 4.1 K/uL (1.8-7.0) 09/24/16 06:20 Lymph # 3.6 K/uL (1.0-4.3) 09/24/16 06:20 [place] # 0.8 K/uL (0.0-0.8) 09/24/16 06:20 Eos # 0.2 K/uL (0.0-0.7) 09/24/16 06:20 Baso # 0.0 K/uL (0.0-0.2) 09/24/16 06:20 ESR 14 mm/hr (0-20) 09/23/16 20:59 PT 11.4 SECONDS (9.6-11.2) H 09/23/16 20:59 INR 1.10 (0.92-1.08) H 09/23/16 20:59 APTT 26.6 SECONDS (23.3-32.5) 09/23/16 20:59 Sodium 135 mmol/l (132-148) 09/24/16 06:20 Potassium 3.9 MMOL/L (3.6-5.0) 09/24/16 06:20 Chloride 103 mmol/L (98-107) 09/24/16 06:20 Carbon Dioxide 27 mmol/L (22-30) 09/24/16 06:20 Anion Gap 10 (10-20) 09/24/16 06:20 BUN 12 mg/dl (7-17) 09/24/16 06:20 Creatinine 0.7 mg/dL (0.7-1.2) 09/24/16 06:20 Est GFR ( Amer) > 60 09/24/16 06:20 Est GFR (Non-Af Amer) > 60 09/24/16 06:20 POC Glucose (mg/dL) 209 mg/dL (65-110) H 09/26/16 05:39 Random Glucose 177 mg/dL (65-105) H 09/24/16 06:20 Hemoglobin A1c 7.8 % (4.2-6.5) H 09/24/16 06:20 Lactic Acid 1.0 MMOL/L (0.7-2.1) 09/23/16 20:59 Uric Acid 4.8 mg/Dl (2.2-7.5) 09/25/16 06:00 Calcium 9.1 mg/dL (8.4-10.2) 09/24/16 06:20 Total Bilirubin 0.5 mg/dl (0.2-1.3) 09/23/16 20:59 AST 21 U/L (14-36) 09/23/16 20:59 ALT 32 U/L (9-52) 09/23/16 20:59 Alkaline Phosphatase 124 U/L (38-126) 09/23/16 20:59 C-React Prot High Sens > 15.00 mg/L (1.00-3.00) H 09/23/16 21:53 Total Protein 8.3 G/DL (6.3-8.2) H 09/23/16 20:59 Albumin 4.2 g/dL (3.5-5.0) 09/23/16 20:59 Globulin 4.1 gm/dL (2.2-3.9) H 09/23/16 20:59 Albumin/Globulin Ratio 1.0 (1.0-2.1) 09/23/16 20:59 Triglycerides 121 mg/DL (0-149) 09/24/16 06:20 Cholesterol 181 mg/dL (0-199) 09/24/16 06:20 LDL Cholesterol Direct 124 mg/dL (0-129) 09/24/16 06:20 HDL Cholesterol 28 MG/DL (30-70) L 09/24/16 06:20 TSH 3rd Generation 5.11 mIU/ML (0.46-4.68) H 09/24/16 06:20 Urine Opiates Screen Negative (NEGATIVE) 09/24/16 16:20 Urine Methadone Screen Negative (NEGATIVE) 09/24/16 16:20 Ur Barbiturates Screen Negative (NEGATIVE) 09/24/16 16:20 Ur Phencyclidine Scrn Negative (NEGATIVE) 09/24/16 16:20 Ur Amphetamines Screen Negative (NEGATIVE) 09/24/16 16:20 U Benzodiazepines Scrn Negative (NEGATIVE) 09/24/16 16:20 U Oth Cocaine Metabols Negative (NEGATIVE) 09/24/16 16:20 U Cannabinoids Screen Negative (NEGATIVE) 09/24/16 16:20 HIV-1 Ab Rapid Screen Non reactive (NON REAC) 09/25/16 10:00 - Hospital Course Hospital Course: 31 year old female admitted for treatment of right foot/ ankle cellulitis after failing outpatient therapy of Levaquin. IV Vanco given with weight based dosing. MRI ruled out osteomyelitis. Given Rx for Bactrim x10 days. ID consult appreciated. Patient also newly diagnosed with DM II. Started Metformin 500mg PO BID #60. She has no PCP. [facility] appointment instructions given and reiterated without difficulty. Acknowledges importance of follow up for cellulitis and management of comorbidities. Discharge Exam - Head Exam Head Exam: ATRAUMATIC, NORMOCEPHALIC - Eye Exam Eye Exam: EOMI Pupil Exam: NORMAL ACCOMODATION - Respiratory Exam Respiratory Exam: NORMAL BREATHING PATTERN. absent: Rales, Rhonchi, Wheezes - Cardiovascular Exam Cardiovascular Exam: REGULAR RHYTHM, +S1, +S2 - GI/Abdominal Exam GI & Abdominal Exam: Normal Bowel Sounds, Soft. absent: Distended, Tenderness - Extremities Exam Additional comments: Right foot mild swelling, warmth, tenderness. +2 bounding distal pulses Motorsensorium full - Neurological Exam Neurological exam: Alert, Oriented x3 Discharge Plan - Discharge Medications Prescriptions: Sulfamethoxazole/Trimethoprim [Bactrim DS 800 mg-160 mg] 1 tab PO BID #20 tab metFORMIN [glucOPHAGE] 500 mg PO BID #60 tab - Follow Up Plan Condition: GOOD Disposition: HOME/ ROUTINE
[2016-09-26] MEDS: Enoxaparin 40 mg Syringe SC SCH (09:06)
== END 2016-09-26 11:56 | disposition home or self-care (01) | DRG 603 ==
LOC: H.ER 20:13 → H.EROBSV 22:50 → H.ERHOLD 23:17 → H.MEDSURG1 09-24 00:51 → OBSVTOIN 09-24 16:14
PROVIDERS: ADMIT Family Medicine Geriatric Medicine; ATTEND Family Medicine Geriatric Medicine
PROC: 0H9MXZX Drainage of Right Foot Skin, External Approach, Diagnostic (ICD-10-PCS; principal; 2016-09-23)
DX: L03.115 Cellulitis of right lower limb (principal); E11.9 Type 2 diabetes mellitus without complications; E66.9 Obesity, unspecified